=== PATIENT | male | born 1975 | race Caucasian/White ===

== ENCOUNTER 2020-05-10 05:18 | Emergency (ER) | payer MEDICAID ==
[~2020-05-10] VITALS: Ht 185.4 cm; Wt 91.3 kg
--- NOTE | 2020-05-10 05:35 | NUR ---
Pt reports chest pain for one hour at this time, EKG done in triage 2, pt back to chair at nurses station at this time for safety.
--- NOTE | 2020-05-10 05:47 | NUR ---
Urine specimen collected and sent. Pt notes that he recently relocated to the [facility] from [place], came here on a road trip. Remains seated in chair at nurses station for safety awaiting availability of room. Pt pleasant and cooperative.
--- NOTE | 2020-05-10 05:52 | NUR ---
Pt ambulate to radiology in ED department with steady gait.
[2020-05-10 06:09] LABS: AMPHETAMINE SCREEN, URINE Positive (Negative); CANNABINOID SCREEN, URINE Positive (Negative); COCAINE SCREEN, URINE Negative (Negative); METHADONE SCREEN, URINE Negative (Negative); OPIATE SCREEN, URINE Negative (Negative)
[2020-05-10 06:10] LABS: BARBITURATE SCREEN, URINE Negative (Negative); BENZODIAZEPINE SCREEN, URINE Negative (Negative)
--- NOTE | 2020-05-10 06:32 | NUR ---
Labs drawn at this time, pt is aware of the wait for the room and the based on his suicidal ideation he needs to remain within view of staff and no secured rooms available at this time.
--- NOTE | 2020-05-10 07:02 | NUR ---
REPORT RECIEVED FROM ERUM FRITZ. ASSUMED CARE OF PT.
[2020-05-10 08:10] LABS: BASOPHILS # (AUTO) 0.08 x10^3/uL (0-0.1); BASOPHILS % (AUTO) 1 % (0-1); EOSINOPHILS # (AUTO) 0.22 x10^3/uL (0-0.4); EOSINOPHILS % (AUTO) 2 % (1-7); LYMPHOCYTES # (AUTO) 2.33 x10^3/uL (1-3.4); LYMPHOCYTES % (AUTO) 25 % (22-44); MD NO; MEAN CORPUSCULAR HEMOGLOBIN 28.2 pg (27.5-34.5); MEAN CORPUSCULAR HGB CONC 32.6 g/dL (33.2-36.2); MEAN CORPUSCULAR VOLUME 86.4 fL (81-97); MEAN PLATELET VOLUME 8.7 fL (7.4-10.4); MONOCYTES # (AUTO) 0.76 x10^3/uL (0.2-0.8); MONOCYTES % (AUTO) 8 % (2-9); NEUTROPHILS # (AUTO) 5.97 x10^3/uL (1.8-6.8); NEUTROPHILS % (AUTO) 64 % (42-75); PLATELET COUNT 358 x10^3/uL (130-400); RED BLOOD COUNT 5.45 x10^6/uL (4.38-5.82); RED CELL DISTRIBUTION WIDTH 14.3 % (9.4-14.8)
[2020-05-10 08:13] LABS: ANION GAP 5 mmol/L (5-15); CALCIUM 9.5 mg/dL (8.5-10.1); CHLORIDE 107 mmol/L (98-107)
[2020-05-10 08:23] LABS: ALANINE AMINOTRANSFERASE 48 U/L (12-78); ALKALINE PHOSPHATASE 97 U/L (45-117); BILIRUBIN,TOTAL 0.7 mg/dL (0.2-1.0); CREATININE 0.85 mg/dL (0.7-1.3); SALICYLATE LEVEL 2.4 mg/dL (2.8-20.0); TOTAL PROTEIN 7.9 g/dL (6.4-8.2)
--- NOTE | 2020-05-10 08:30 | NUR ---
PT PROVIDED WITH MEAL TRAY. BELONGINGS IN LOCKED LOCKER. GARAGE DOORS DOWN ON LILLY. SITTER AT DOORSIDE. PT DENIES OTHER NEEDS AT THIS TIME. PT BEING COOPERATIVE AT THIS TIME. CALL LIGHT WITHIN REACH. WILL CONT TO MONITOR PT.
--- NOTE | 2020-05-10 10:23 | NUR ---
THROUGHPUT: FAXED PACKET TO [facility].
--- NOTE | 2020-05-10 10:51 | NUR ---
THROUGHPUT: [facility] DENIED PT.
--- NOTE | 2020-05-10 10:53 | NUR ---
THROUGHPUT: FAXED INFO PACKET TO [facility] AND [facility]
--- NOTE | 2020-05-10 11:20 | NUR ---
MOVED FROM ER ROOM 38 TO ROOM 3. PLACED ON HOSPITAL BED. UPDATED ON ESTIMATED POC DENIES COMPLAINTS AT THIS TIME
[2020-05-10] MEDS ORDERED: ZIPRASIDONE 20MG CAPSULE ONE (11:36)
[2020-05-10] MEDS: ZIPRASIDONE 20MG CAPSULE PO SCH (11:38)
[2020-05-10] MEDS: VENLAFAXINE 75MG TABLET PO SCH (12:25)
--- NOTE | 2020-05-10 18:53 | NUR ---
REPORT RECIEVED FROM ERUM JOHNSON. PATIENT RESTING IN BED, NO NOTED NEEDS AT THIS TIME. SITTER WITHIN VIEW OF PATIENT, WILL CONTINUE TO MONITOR.
--- NOTE | 2020-05-10 19:17 | NUR ---
PATIENT OFFERED FOOD, DENIED. DENIES ANY FURTHER NEEDS AT THIS TIME. VITAL SIGNS STABLE. NO NOTED FURTHER NEEDS. PATIENT GIVEN INFORMATION REGARDING PLAN OF CARE. SITTER WITHIN VIEW OF PATIENT.
--- NOTE | 2020-05-10 20:00 | NUR ---
PATIENT RESTING IN BED, NO NOTED NEEDS AT THIS TIME. SITTER WITHIN VIEW OF PATIENT. WILL CONTINUE TO MONITOR. BED IN LOWEST LOCKED POSITION, CALL LIGHT WITHIN REACH.
--- NOTE | 2020-05-10 23:01 | NUR ---
PATIENT RESTING IN BED, EVEN-UNLABORED RESPIRATIONS. NO NOTED ACUTE DISTRESS. SITTER WITHIN VIEW OF PATIENT. WILL CONTINUE TO MONITOR. PATIENT IS ON HOSPITAL BED TO IMPROVE PATIENT COMFORT. BED IN LOWEST LOCKED POSITION, CALL LIGHT WITHIN REACH.
--- NOTE | 2020-05-11 01:58 | NUR ---
PAITENT AMBULATORY TO RESTROOM. NO NOTED ACUTE DISTRESS. PATIENT'S STABLE GAIT, TOLERATED WELL. SITTER IN VIEW OF PATIENT. WILL CONTINUE TO MONITOR.
--- NOTE | 2020-05-11 02:49 | NUR ---
PATIENT RESTING IN BED, NO NOTED NEEDS AT THIS TIME. EVEN-UNLABORED RESPIRATIONS NOTED. SITTER WITHIN VIEW OF PATIENT. WILL CONTINUE TO MONITOR.
--- NOTE | 2020-05-11 03:40 | NUR ---
PATIENT RESTING IN BED, EVEN-UNLABORED RESPIRATIONS NOTED. SITTER IN VIEW OF PATIENT. NO NOTED NEEDS AT THIS TIME. WILL CONTINUE TO MONITOR.
--- NOTE | 2020-05-11 04:19 | NUR ---
PATIENT RESTING IN BED, EVEN-UNLABORED RESPIRATIONS NOTED. SITTER IN VIEW OF PATIENT. NO NOTED NEEDS AT THIS TIME. WILL CONTINUE TO MONITOR.
--- NOTE | 2020-05-11 05:47 | NUR ---
PATIENT RESTING IN BED, EVEN-UNLABORED RESPIRATIONS NOTED. SITTER IN VIEW OF PATIENT. NO NOTED NEEDS AT THIS TIME. WILL CONTINUE TO MONITOR.
--- NOTE | 2020-05-11 06:37 | NUR ---
PATIENT RESTING IN BED, NO NOTED NEEDS. SITTER WITHIN VIEW OF PATIENT. WILL CONTINUE TO MONITOR.
--- NOTE | 2020-05-11 06:45 | NUR ---
REPORT GIVEN TO ERUM BRADFORD
--- NOTE | 2020-05-11 06:57 | NUR ---
report received from lucho levi.
--- NOTE | 2020-05-11 06:58 | NUR ---
meal tray ordered at this time.
--- NOTE | 2020-05-11 08:02 | NUR ---
meal tray provided at this time.
--- NOTE | 2020-05-11 08:08 | NUR ---
medication ordered from pharmacy at this time.
[2020-05-11] MEDS: VENLAFAXINE 75MG TABLET PO SCH ×2 (09:00→13:00)
--- NOTE | 2020-05-11 09:11 | NUR ---
pt medicated per emar. pt tolerated well. pt's aox4. resps even and unlabored.
--- NOTE | 2020-05-11 10:01 | NUR ---
PT SLEEPING IN HOSPITAL BED. RESPS EVEN AND UNLABORED. SITTER MONITORING FROM [facility] FOR SAFETY. ROOM REMAINS SECURE.
--- NOTE | 2020-05-11 11:16 | NUR ---
DIET TRAY ORDERED AT THIS TIME.
--- NOTE | 2020-05-11 12:01 | NUR ---
MEAL TRAY PROVIDED AT THIS TIME.
--- NOTE | 2020-05-11 12:05 | NUR ---
medication ordered from pharmacy at this time.
--- NOTE | 2020-05-11 13:08 | NUR ---
PT MEDICATED PER EMAR. PT TOLERATED WELL. PT'S AOX4. RESPS EVEN AND UNLABORED. SITTER MONITORING FROM [facility] FOR SAFETY. ROOM REMAINS SECURE.
--- NOTE | 2020-05-11 14:10 | NUR ---
PT SLEEPING IN HOSPITAL BED. RESPS EVEN AND UNLABORED. SITTER MONITORING FROM [facility] FOR SAFETY. ROOM REMAINS SECURE.
--- NOTE | 2020-05-11 15:25 | NUR ---
PT SLEEPING IN HOSPITAL BED. RESPS EVEN AND UNLABORED. SITTER MONITORING FROM [facility] FOR SAFETY. ROOM REMAINS SECURE.
--- NOTE | 2020-05-11 16:40 | NUR ---
PT AMB TO BR AND BACK TO ROOM WITH STEADY GAIT.
--- NOTE | 2020-05-11 17:00 | NUR ---
MEAL TRAY ORDERED AT THIS TIME.
--- NOTE | 2020-05-11 18:05 | NUR ---
DINNER TRAY PROVIDED AT THIS TIME.
--- NOTE | 2020-05-11 18:47 | NUR ---
BS report from Arabella RN, pt care transferred to this RN at this time.
--- NOTE | 2020-05-11 18:50 | NUR ---
REPORT GIVEN TO CATRINA DANIELSON.
--- NOTE | 2020-05-11 18:57 | NUR ---
RN FIRST CONTACT WITH PT: PT LAYING IN HOSPITAL BED ON STOMACH, RESP SEEN AND HEARD, P/W/D, APPEARS COMFORTABLE, BLANKETS PARTIALLY COVERING BODY, LIGHTS DIMMED FOR COMFORT, EYES CLOSED, NAD, SITTER IN LINE OF SIGHT. WCTM.
--- NOTE | 2020-05-11 19:54 | NUR ---
RN TO BS FOR EVAL AND DISCUSS POC. RN ASKED PT ABOUT SUICIDAL THOUGHTS PT REPORTS "I HAVE A PLAN AND I JUST CANT STOP THINKING ABOUT IT AND HAVING THESE THOUGHTS OVER AND OVER." PT RESTING IN HOSPITAL BED, NAD, VSS, NO CHANGE IN CURRENT CONDITION, SITTER IN LINE OF SIGHT. WCTM.
--- NOTE | 2020-05-11 20:55 | NUR ---
LATE ENTRY: PT RESTING ON HOSPITAL BED, NO CHANGE IN CONDITION, NAD, LIGHTS OFF FOR COMFORT, EYES CLOSED, WCTM. SITTER IN LINE OF SIGHT.
--- NOTE | 2020-05-11 21:51 | NUR ---
PT RESTING ON HOSPITAL BED, NO CHANGE IN CONDITION, NAD, EYES CLOSED, WCTM. SITTER IN LINE OF SIGHT.
--- NOTE | 2020-05-11 22:59 | NUR ---
PT RESTING ON HOSPITAL BED, NO CHANGE IN CONDITION, NAD, EYES CLOSED, WCTM. SITTER IN LINE OF SIGHT.
--- NOTE | 2020-05-12 00:05 | NUR ---
PT RESTING ON HOSPITAL BED, LAYING ON SIDE, RESP WNL, EQUAL AND BILATERAL CHEST RISE AND FALL. SITTER IN LINE OF SIGHT. WCTM.
--- NOTE | 2020-05-12 01:07 | NUR ---
PT RESTING ON HOSPITAL BED, LAYING ON SIDE, RESP WNL, NO CHANGE IN PT CONDITION, EQUAL AND BILATERAL CHEST RISE AND FALL. SITTER IN LINE OF SIGHT. WCTM.
--- NOTE | 2020-05-12 02:35 | NUR ---
PT RESTING ON HOSPITAL BED, NO CHANGE IN CONDITION, RESP HEARD AND EVEN CHEST RISE AND FALL, NAD, EYES CLOSED, WCTM. SITTER IN LINE OF SIGHT.
--- NOTE | 2020-05-12 03:19 | NUR ---
PT CONDITION UNCHANGED. SITTER IN LINE OF SIGHT. WCTM.
--- NOTE | 2020-05-12 04:30 | NUR ---
PT RESTING ON HOSPITAL BED, EYES CLOSED, CONDITION UNCHANGED. SITTER IN LINE OF SIGHT. WCTM.
--- NOTE | 2020-05-12 05:25 | NUR ---
PT RESTING ON HOSPITAL BED, EYES CLOSED, CONDITION UNCHANGED. SITTER IN LINE OF SIGHT. WCTM. BREAKFAST TRAY ORDERED.
--- NOTE | 2020-05-12 06:50 | NUR ---
PT RESTING IN HOSPITAL BED, EYES CLOSED, NAD, CHEST RISE AND FALL EQUAL AND BILATERAL, RESP HEARD. SITTER WITHIN LINE OF SIGHT. BS REPORT TO RENEE DANIELSON.
--- NOTE | 2020-05-12 07:16 | NUR ---
PT RESTING CALMLY IN HOSPITAL BED. NO STATED NEEDS AT THIS TIME. WILL CONTINUE TO MONITOR.
--- NOTE | 2020-05-12 08:58 | NUR ---
PT CONTINUES TO REST CALMLY IN BED. NO STATED NEEDS. SITTER AT DOOR FOR OBS.
[2020-05-12] MEDS ORDERED: ZIPRASIDONE 20MG CAPSULE ONE ×2 (09:08→21:48)
[2020-05-12] MEDS: ZIPRASIDONE 20MG CAPSULE PO SCH ×4 (09:12→21:55)
[2020-05-12] MEDS: VENLAFAXINE 75MG TABLET PO SCH ×2 (09:19→13:08)
--- NOTE | 2020-05-12 09:25 | NUR ---
PT MEDICATED WITH AM MEDS. PT GIVEN BREAKFAST TRAY. PT CALM AND PLEASANT. DENIED HAVING ANY CONCERNS FOR THE DOCTOR TO ADDRESS TODAY. DENIED ANY PAIN. SITTER AT DOOR, PT MOVES ALL EXTREMITIES WITH EASE. WILL CONTINUE TO MONITOR.
--- NOTE | 2020-05-12 10:50 | NUR ---
PT RESTING CALMLY IN BED WITH EYES CLOSED. NO STATED NEEDS AT THIS TIME. WILL CONTINUE TO MONITOR. SITTER AT DOOR.
--- NOTE | 2020-05-12 11:33 | NUR ---
PT RESTING CALMLY IN BED WITH EYES CLOSED. NO STATED NEEDS AT THIS TIME. LUNCH TRAY ORDERED. SITTER AT DOOR FOR FREQUENT OBS.
--- NOTE | 2020-05-12 12:11 | NUR ---
Safetty Meal tray provided to patient.
--- NOTE | 2020-05-12 13:08 | NUR ---
break RN note: pt medicated per emar, tolerated well. si meal tray at bedside, approx 50% consumed so far. room secure, sitter monitoring from [facility] for safety. room secure.
--- NOTE | 2020-05-12 14:14 | NUR ---
report given to ERUM Bender who is assuming care.
--- NOTE | 2020-05-12 14:18 | NUR ---
REPORT RECEIVED FROM MADELYN DANIELSON. PT IS RESTING ON HOSPITAL BED W/ GARAGE DOORS DOWN AND SITTER OUTSIDE ROOM FOR SAFETY. RESP EVEN AND UNLABORED, NED.
--- NOTE | 2020-05-12 15:33 | NUR ---
PT IS RESTING ON HOSPITAL BED W/ GARAGE DOORS DOWN AND SITTER OUTSIDE ROOM FOR SAFETY. RESP EVEN AND UNLABORED, NED.
--- NOTE | 2020-05-12 16:30 | NUR ---
PT IS RESTING ON HOSPITAL BED W/ GARAGE DOORS DOWN AND SITTER OUTSIDE ROOM FOR SAFETY. RESP EVEN AND UNLABORED, NED.
[2020-05-12] MEDS ORDERED: LORazepam 1MG TABLET ONE (17:05)
--- NOTE | 2020-05-12 17:08 | NUR ---
PT REPORTS ANXIETY, REQUESTING MEDS. ED PROVIDER NOTIFED. PT MEDICATED PER EMAR.
[2020-05-12] MEDS ORDERED: LORazepam 1MG TABLET PO ONE (17:30)
--- NOTE | 2020-05-12 17:55 | NUR ---
PT IS RESTING ON HOSPITAL BED W/ GARAGE DOORS DOWN AND SITTER OUTSIDE ROOM FOR SAFETY. RESP EVEN AND UNLABORED, NED.
--- NOTE | 2020-05-12 17:58 | NUR ---
suicide Safety Meal tray provided to patient.
--- NOTE | 2020-05-12 18:39 | NUR ---
PT IS RESTING ON HOSPITAL BED W/ GARAGE DOORS DOWN AND SITTER OUTSIDE ROOM FOR SAFETY. RESP EVEN AND UNLABORED, NED.
--- NOTE | 2020-05-12 19:02 | NUR ---
REPORT GIVEN TO THAI DANIELSON.
--- NOTE | 2020-05-12 19:04 | NUR ---
REPORT RECEIVED FROM ERUM EPPS. ASSUMED CARE OF PT. PT SLEEPING AT THIS TIME. RESPIRATIONS EVEN AND UNLABORED. ROOM REMAINS SECURE, SITTER OUTSIDE DOOR.
--- NOTE | 2020-05-12 20:02 | NUR ---
PT CONTINUES TO SLEEP, RESPIRATIONS EVEN AND UNLABORED. SITTER OUTSIDE DOOR, WILL CONTINUE TO MONITOR.
--- NOTE | 2020-05-12 21:55 | NUR ---
PT MEDICATED PER EMAR. 5 RIGHTS ADDRESSED. VITALS ALSO ASSESSED. ALL WITHIN NORMAL LIMITS. PT PROVIDED WITH SOCKS. DENIED ANY OTHER NEEDS AT THIS TIME. PT AWARE HE CAN PRESS THE CALL LIGHT IF HE HAS ANY NEEDS OR CONCERNS. ROOM REMAINS SECURE SITTER OUTSIDE DOOR.
--- NOTE | 2020-05-12 23:54 | NUR ---
Pt report from Cathryn levi.
--- NOTE | 2020-05-12 23:55 | NUR ---
Roller doors in place. Pt in hospital bed. Sitter in hallway. No immediate needs from pt.
--- NOTE | 2020-05-13 01:59 | NUR ---
Pt sleeping comfortably. NADN. Rr even and unlabored.
--- NOTE | 2020-05-13 02:58 | NUR ---
Pt sleeping comfortably. NADN. Rr even and unlabored.
--- NOTE | 2020-05-13 05:05 | NUR ---
PT sleeping comfortably nadn. Rr even and unlabored. Sitter in hallway. Roller doors remain intact.
--- NOTE | 2020-05-13 05:49 | NUR ---
PT sleeping comfortably nadn. Rr even and unlabored. Sitter in hallway. Roller doors remain intact.
--- NOTE | 2020-05-13 06:43 | NUR ---
PT sleeping comfortably nadn. Rr even and unlabored. Sitter in hallway. Roller doors remain intact.
--- NOTE | 2020-05-13 07:05 | NUR ---
Received bedside report from ERUM Muñiz. All questions answered. Pt asleep on hospital bed with unlabored respirations. NADN. No needs expressed. Room remains secured for SI/HI measures and sitter in direct line of sight for observation. No needs expressed at this time.
[2020-05-13] MEDS ORDERED: ZIPRASIDONE 20MG CAPSULE ONE (08:12)
[2020-05-13] MEDS: ZIPRASIDONE 20MG CAPSULE PO SCH (08:25)
[2020-05-13] MEDS: VENLAFAXINE 75MG TABLET PO SCH ×2 (09:47→12:12)
--- NOTE | 2020-05-13 09:48 | NUR ---
TASK RN: MEDICATION ADMINISTERED PER EMAR. NED. PT RESTING ON HOSP BED. PT WAS THANKFUL AND CALM. NO OTHER NEEDS REQUESTED AT THIS TIME. ALL SAFETY MEASURES OBTAINED
--- NOTE | 2020-05-13 10:12 | NUR ---
Provided report to ERUM Rowan. All questions answered. ERUM Rowan to assume care at this time.
--- NOTE | 2020-05-13 10:12 | NUR ---
assuming pt care at this time. received bedside report from ERUM Pelletier
--- NOTE | 2020-05-13 12:10 | NUR ---
TASK RN NOTE: PT SITTING UP IN BED, TALKING WITH SHOT COAT TENDER. NAD NOTED AT THIS TIME. PO MED ADMINISTRATION AT THIS TIME PER EMAR. PT LUNCH TRAY GIVEN. SITTER OUTSIDE OF ROOM FOR DIRECT OBSERVATION AND Q15 MIN SAFETY CHECKS.
[2020-05-13 12:34] VITALS: BP 124/90
--- NOTE | 2020-05-13 12:35 | NUR ---
PER AMANUEL HENDRICKS PT TO BE DC'ED. PERSONAL BELONGINGS AT BEDSIDE. NAD NOTED AT THIS TIME. [employer] VOUCHER PROVIDED. [employer] CALLED FOR PT RIDE.
--- NOTE | 2020-05-13 14:00 | NUR ---
MADELEINE WAS D/C TOADY 05/13. HE WAS CONCERNED ABOUT A LETTER THAT HIS FATHER HAD MAILED TO HIM HERE AT [facility]. HIS FATHER TOLD HIM THE LETTER WAS ADDRESSED TO MADELEINE IN C/O THE EMERGENCY DEPT. I HAVE NOTIFIED THE MAIL INTAKE AREA TO PLEASE LOOK FOR THE LETTER TO ARRIVE W/I THE NEXT FEW DAYS. IN ADDITION THE ED SECRECTARY, PRODUCT MARKETING INTERN, SUPERVISORS AND CHARGE AREAS HAVE BEEN MADE AWARE. I INSTRUCTED MADELEINE TO ASK FOR THE ARCHITECT INTERNSHIP LATER THIS WEEK TO CERTIFIED SURGICAL FIRST ASSISTANT THE LETTER IF IT ARRIVES.
== END 2020-05-13 12:37 | disposition home or self-care (01) ==
LOC: ED 06:08
DX: R45.851 Suicidal ideations (principal); F32.9 Major depressive disorder, single episode, unspecified; R07.89 Other chest pain; R00.0 Tachycardia, unspecified; F20.9 Schizophrenia, unspecified
CPT/HCPCS: 36415; 71045; 80053; 80307; 85025; 93005; 99285

== ENCOUNTER 2020-05-14 14:29 | Emergency (ER) | payer MEDICAID ==
[~2020-05-14] VITALS: Ht 185.4 cm; Wt 90.9 kg
[2020-05-14 14:40] VITALS: BP 115/81
--- NOTE | 2020-05-14 14:56 | NUR ---
THIS IS A 44 YO M WHO REPORTS HE WAS JUST DC FROM [facility]. REPORTS DC PLAN WAS FOR HIM TO RETURN HERE TO [facility] ED TO HEALTH PRACTICE MANAGER MAIL THAT SOMEONE SENT HERE CONTAINING MONEY. PT DENIES SI AT THIS TIME. STATES "ONCE I GET THAT MAIL ILL BE OKAY". PT BELONGINGS REMOVED FROM ROOM, PLACED IN [address] WHITE [address] IN SAFETY LOCKER. GARAGE DOORS DOWN AND SITTER OUTSIDE ROOM FOR SAFETY.
--- NOTE | 2020-05-14 15:11 | NUR ---
AT BEDSIDE FOR ED EVAL.
--- NOTE | 2020-05-14 16:07 | NUR ---
PT HAS LEFT ROOM MULTIPLE TIMES TO MAKE PHONE CALLS. EDUCATED ON NEED TO STAY IN ROOM. PT KEEPS ASKING IF MAIL HAS BEEN DELIVERED YET. PT INFORMED IT HAS NOT AND THAT WE WOULD NOTIFY HIM WHEN IT IS HERE. PT INCREASINGLY AGITATED, REQUESTING ATIVAN. WILL UPDATE E PROVIDER.
--- NOTE | 2020-05-14 16:17 | NUR ---
PT MEDICATED PER EMAR. PT REPORTS HE IS NOT SI HE JUST WANTS HIS MAIL. PT STATES HE WOULD FEEL COMFORTABLE BEING DC AND WAITING IN LOBBY FOR MAIL SINCE HE HAS NO COMPLAINTS AT THIS TIME. WILL UPDATED .
--- NOTE | 2020-05-14 17:19 | NUR ---
PT INFORMED MAIL IS NOT HERE, PT STATES "WELL IM SUICIDAL THEN" UPDATED. AGREES THAT IT IS SAFE TO DC PT AT THIS TIME. BELONGINGS RETURNED TO PT. PT VERBALIZED UNDERSTANDING HE CAN COME BACK TOMORROW TO CHECK FOR MAIL.
--- NOTE | 2020-05-14 17:27 | NUR ---
PT OFFERED [employer] VOUCHER, WHEN THIS RN WAS FILLING OUT VOUCHER PT BEHAVIOR BECAME AGGRESSIVE AND STARTING YELLING AND CUSSING AT STAFF. PT ASKED TO LEAVE THE ED, PT CONTINUED TO YELL AND CUSS. PT FOLLOWED OUT BY SECURITY.
== END 2020-05-14 17:31 | disposition home or self-care (01) ==
LOC: ED 17:00
DX: F41.1 Generalized anxiety disorder (principal)
CPT/HCPCS: 99283; Q0177